=== PATIENT | male | born 1980 | race Caucasian/White ===

== ENCOUNTER 2019-01-03 20:37 | Emergency (ER) | payer SELFPAY ==
[~2019-01-03] VITALS: Ht 170.2 cm; Wt 74.8 kg
--- NOTE | 2019-01-03 21:04 | PHYS DOC ---
Past History Past Medical History: Seizure Additional Past Surgical Histo: knee surgery Smoking: Cigarettes, Less than 1pk/day Drug Use: None Adult General Chief Complaint Chief Complaint: MECHANICAL FALL HPI HPI Patient is a 38-year-old male presents with back pain post fall yesterday. Patient was standing in the bed of a pickup truck moving a dresser, while walking backwards with the dresser, missed a step and fell backwards landing on his back. No loss of consciousness. No numbness, tingling, paresthesias. Patient is also had a cough for the past 2 months. No worsening difficulty breathing than usual. Movement makes his back pain worse. Patient has taken no home pain medicines. Patient has a history of seizures, no seizure activity with this fall, patient is not currently taking any antiseizure medicines. Keppra made him suicidal.[] Review of Systems Review of Systems Constitutional: Denies fever or chills [] Eyes: Denies change in visual acuity, redness, or eye pain [] HENT: Denies nasal congestion or sore throat [] Respiratory: Cough for the past 2 months[] Cardiovascular: No additional information not addressed in HPI [] GI: Denies abdominal pain, nausea, vomiting, bloody stools or diarrhea [] : Denies dysuria or hematuria [] Musculoskeletal: See history of present illness, denies joint pain [] Integument: Denies rash or skin lesions [] Neurologic: Denies headache, focal weakness or sensory changes [] Endocrine: Denies polyuria or polydipsia [] All other systems were reviewed and found to be within normal limits, except as documented in this note. Physical Exam Physical Exam Constitutional: Well developed, well nourished, no acute distress, non-toxic appearance. [] HENT: Normocephalic, atraumatic, bilateral external ears normal, oropharynx moist, no oral exudates, nose normal. [] Eyes: PERRLA, EOMI, conjunctiva normal, no discharge. [] Neck: Normal range of motion, no tenderness, supple, no stridor. [] Cardiovascular:Heart rate regular rhythm, no murmur [] Lungs & Thorax: Bilateral breath sounds clear to auscultation [] Abdomen: Bowel sounds normal, soft, no tenderness, no masses, no pulsatile masses. [] Skin: Warm, dry, no erythema, no rash. [] Back: Tenderness bilateral lower back. No midline step-off or crepitus or tenderness., no CVA tenderness. [] Extremities: No tenderness, no cyanosis, no clubbing, ROM intact, no edema. [] Neurologic: Alert and oriented X 3, normal motor function, normal sensory function, no focal deficits noted. [] Psychologic: Affect normal, judgement normal, mood normal. [] EKG EKG [] Radiology/Procedures Radiology/Procedures CHEST PA LATERAL CLINICAL INDICATION: COUGH, FEVER, SMOKER
ALSO FELL FROM A TRUCK, RIGHT SIDED CHEST PAIN COMPARISON: None FINDINGS: Heart is normal in size. Diffuse bilateral prominent bronchial markings are seen with interstitial opacities. No focal consolidation. No pneumothorax or pleural effusion. Visualized bony thorax is within normal limits. IMPRESSION: Findings of atypical/viral infection/bronchitis. Number spine x-ray does not show any acute fracture or subluxation[] Course & Med Decision Making Course & Med Decision Making Pertinent Labs and Imaging studies reviewed. (See chart for details) Medical decision making: There is no evidence of a fracture, pneumothorax, subluxation, nor significant renal injury. No evidence of neurologic compromise. ED course: Patient arrived, was placed in bed, and tolerated exam well. He initially deferred pain medicine. He was transported to and from radiology with any complications. After return from radiology he requested pain management. This was administered. Findings were discussed with the patient and family who voiced understanding. All questions were answered. Patient was discharged in improved condition.[] Dragon Disclaimer Dragon Disclaimer This electronic medical record was generated, in whole or in part, using a voice recognition dictation system. Departure Departure: Impression: Primary Impression: Back contusion Additional Impression: Bronchitis Disposition: HOME, SELF-CARE Condition: IMPROVED Patient Instructions: Acute Bronchitis, Contusion, Low Back Sprain with Rehab- [facility] Additional Instructions: Follow-up with your regular doctor in 2 days. If you do not have of regular physician a list of local clinics will be provided for you. Return to the ER if worsening pain, or any other concerns. Scripts Albuterol Sulfate (PROVENTIL HFA INHALER) 6.7 Gm Hfa.aer.ad 2 PUFF INH PRN Q4HRS PRN for COUGH, #1 INHALER 0 Refills Prov: DIRK CHADWICK DO 01/03/19 Ondansetron Hcl (ZOFRAN) 4 Mg Tablet 1 TAB PO Q6HRS for nausea or vomiting, #20 TAB Prov: DIRK CHADWICK DO 01/03/19 Orphenadrine Citrate (ORPHENADRINE CITRATE) 100 Mg Tablet.er 100 MG PO BID for BACK PAIN, #20 TAB.SR Prov: DIRK CHADWICK DO 01/03/19 Meloxicam (MELOXICAM) 7.5 Mg Tablet 7.5 MG PO DAILY for PAIN, #20 TAB Prov: DIRK CHADWICK DO 01/03/19 Problem Qualifiers Primary Impression: Back contusion Encounter type: initial encounter Laterality: unspecified laterality Qualified Codes: S20.229A - Contusion of unspecified back wall of thorax, initial encounter DIRK CHADWICK DO Jan 03, 2019 21:04
[2019-01-03 21:36] LABS: BACTERIA,URINE FEW /HPF (0-FEW); BILIRUBIN,URINE NEG (NEG); CLARITY,URINE HAZY; COLOR,URINE AMBER; GLUCOSE,URINE NEG (NEG); NITRITE,URINE NEG (NEG); SQUAMOUS EPITHELIAL CELL,UR FEW /LPF; UROBILINOGEN,URINE 1 mg/dL (0.2 mg/dL)
[2019-01-03 21:37] LABS: HYALINE CASTS, URINE OCC /HPF
--- NOTE | 2019-01-03 21:46 | RAD ---
CHEST PA LATERAL CLINICAL INDICATION: COUGH, FEVER, SMOKER
ALSO FELL FROM A TRUCK, RIGHT SIDED CHEST PAIN COMPARISON: None FINDINGS: Heart is normal in size. Diffuse bilateral prominent bronchial markings are seen with interstitial opacities. No focal consolidation. No pneumothorax or pleural effusion. Visualized bony thorax is within normal limits. IMPRESSION: Findings of atypical/viral infection/bronchitis. Electronically signed by: Chito Bryson DO (01/03/2019 9:43 PM) [facility]
[2019-01-03] MEDS ORDERED: ONDANSETRON ODT 4 MG TAB.RAPDIS PO ONE (22:00)
[2019-01-03] MEDS ORDERED: ONDA4TAB7 PO (22:00)
[2019-01-03] MEDS ORDERED: KETOROLAC 15 MG/ML VIAL. IM ONE (22:00)
[2019-01-03] MEDS ORDERED: ORPH-16 PO (22:00)
[2019-01-03] MEDS ORDERED: MELO7.5T29 PO (22:00)
[2019-01-03] MEDS ORDERED: ALBU2.5V8 INH (22:00)
--- NOTE | 2019-01-03 22:00 | RAD ---
Indication: Fall from a truck. Low back pain TECHNIQUE: Multiple views of the lumbar spine COMPARISON: None FINDINGS: Lumbar spine is in normal anatomic alignment. No high-grade compression deformity. Facet joints are in normal anatomic alignment. SI joints within normal limits. There are 5 lumbar type vertebral bodies. Mild degenerative disc disease seen at L5-S1. IMPRESSION: No acute radiographic findings. Electronically signed by: Chito Bryson DO (01/03/2019 9:57 PM) [facility]
[2019-01-03] MEDS ORDERED: ONDANSETRON ODT 4 MG TAB.RAPDIS ONE (22:01)
[2019-01-03 22:30] VITALS: BP 100/56
== END 2019-01-03 22:30 | disposition home or self-care (01) ==
LOC: MERGE 20:37 → ER 20:37
DX: S30.0XXA Contusion of lower back and pelvis, initial encounter (principal); J40 Bronchitis, not specified as acute or chronic; F17.210 Nicotine dependence, cigarettes, uncomplicated; V59.9XXA Occupant (driver) (passenger) of pick-up truck or van injured in unspecified traffic accident, initial encounter; Y93.01 Activity, walking, marching and hiking; Y92.89 Other specified places as the place of occurrence of the external cause; Y99.8 Other external cause status
CPT/HCPCS: 71046; 72110; 81001; 96372; 99284; J1885; Q0162

== ENCOUNTER 2021-09-30 15:05 | Emergency (ER) | payer SELFPAY ==
[~2021-09-30 15:05] MED LIST: ALBU2.5V8 INH; MELO7.5T29 PO; ONDA4TAB7 PO; ORPH-16 PO
== END 2021-09-30 16:00 | disposition left against medical advice (07) ==
LOC: ER 15:05
DX: R50.9 Fever, unspecified (principal); R51.9 Headache, unspecified; M79.10 Myalgia, unspecified site; Z53.21 Procedure and treatment not carried out due to patient leaving prior to being seen by health care provider